=== PATIENT | female | born 1995 | race Caucasian/White ===

== ENCOUNTER → 2018-01-23 | Outpatient (CLI) | payer OTHER, BC | END | disposition home or self-care (01) | LOC: KCIC MRI 10:00 | DX: M22.41 Chondromalacia patellae, right knee (principal); Z98.890 Other specified postprocedural states | CPT/HCPCS: 73721 ==

== ENCOUNTER → 2019-01-13 | Outpatient (CLI) | payer OTHER, BC ==
--- NOTE | 2019-01-13 16:16 | KCIC ---
MRI right knee without contrast dated 01/13/2019. Comparison made to 01/23/2018. CLINICAL INDICATION: Right knee pain. TECHNIQUE: Routine multiplanar multisequence MR imaging right knee performed. No contrast administered. FINDINGS: Study is somewhat limited due to motion artifact and pulsation artifact. Bone marrow signal is homogeneous. No marrow edema. Mild thinning and surface irregularity of the articular cartilage of the inferior medial and lateral patellar facet and medial and lateral femoral trochlea. Medial and lateral compartment cartilage are intact. Small suprapatellar joint effusion. No intra-articular loose body. No significant popliteal cyst. Anterior cruciate and posterior cruciate ligaments intact. Medial and lateral collateral complexes are intact. Iliotibial band, popliteus tendon and pes anserine complex within normal limits. Quadriceps and patellar tendon are intact. There is some linear scarring and irregular signal at the deep infrapatellar fat. There is also a of the lateral retinaculum, new from prior study. No significant lateral patellar subluxation. Both menisci are normal in morphology and signal. No articular surface tear or perimeniscal cyst. IMPRESSION: 1. No evidence of internal derangement. No apparent meniscal tear. 2. Mild anterior compartment chondromalacia, unchanged. 3. Small joint effusion. 4. 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 This could be related to prior surgery. Correlate clinically. Electronically signed by: Mau Ernst MD (01/13/2019 4:13 PM) [id number]
== END | disposition home or self-care (01) ==
LOC: KCIC MRI 15:18
PROVIDERS: ATTEND Orthopaedic Surgery
DX: M25.461 Effusion, right knee (principal); M94.261 Chondromalacia, right knee
CPT/HCPCS: 73721